=== PATIENT | male | born 2000 | race Hispanic/Latino ===

== ENCOUNTER 2022-03-29 04:59 | Emergency (ER) | payer OTHER ==
[~2022-03-29] VITALS: Ht 172.7 cm; Wt 63.5 kg
[2022-03-29] MEDS ORDERED: LEXAPRO (05:03)
[2022-03-29 05:27] LABS: BASOPHILS % (AUTO) 0.7 % (0.0-5.0); EOSINOPHILS % (AUTO) 0.5 % (0.0-8.0); HEMATOCRIT 42.6 % (42-54); LYMPHOCYTES % (AUTO) 24.5 % (21.0-51.0); MEAN CORPUSCULAR HEMOGLOBIN 30.4 pg (27.0-33.0); MEAN CORPUSCULAR HGB CONC 35.9 g/dL (32.0-36.0); MEAN CORPUSCULAR VOLUME 84.5 fL (79-99); MONOCYTES % (AUTO) 5.5 % (3.0-13.0); NEUTROPHILS % (AUTO) 68.6 % (40.0-77.0); PLATELET COUNT (AUTO) 199 K/uL (130-400); RED BLOOD CELL COUNT(AUTO) 5.04 MIL/uL (4.50-6.20); RED CELL DISTRIBUTION WIDTH 12.1 % (11.0-15.5)
[2022-03-29 05:29] LABS: APPEARANCE,URINE CLEAR (CLEAR); BILIRUBIN,URINE NEGATIVE (NEGATIVE); COLOR,URINE LIGHT-YELLOW (YELLOW); GLUCOSE, URINE (UA) NEGATIVE (NEGATIVE); KETONES,URINE 40 mg/dL (NEGATIVE); LEUKOCYTE ESTERASE ,URINE NEGATIVE Leu/uL (NEGATIVE); NITRATE,URINE NEGATIVE (NEGATIVE); OCCULT BLOOD,URINE NEGATIVE (NEGATIVE); PROTEIN,URINE NEGATIVE (NEGATIVE); UROBILINOGEN,URINE 0.2 mg/dL (0.2-1.0)
[2022-03-29 05:37] LABS: AMPHET/METH SCREEN,URINE NEGATIVE (NEGATIVE); BARBITURATE SCREEN, URINE NEGATIVE (NEGATIVE); BENZODIAZEPINES SCREEN,URINE NEGATIVE (NEGATIVE); CANNABINOID SCREEN,URINE NEGATIVE (NEGATIVE); COCAINE SCREEN,URINE NEGATIVE (NEGATIVE); OPIATE SCREEN,URINE NEGATIVE (NEGATIVE); PHENCYCLIDINE SCREEN,URINE NEGATIVE (NEGATIVE)
[2022-03-29 05:43] LABS: CREATININE 0.9 mg/dL (0.5-1.5); POTASSIUM 3.5 mmol/L (3.5-5.1)
[2022-03-29 05:50] LABS: ALBUMIN 4.8 g/dL (3.5-5.0); MAGNESIUM 1.9 mg/dL (1.80-2.40)
[2022-03-29 07:01] VITALS: BP 123/62
== END 2022-03-29 07:02 | disposition home or self-care (01) ==
LOC: EDH 04:59
DX: R07.89 Other chest pain (principal)
CPT/HCPCS: 36415; 71045; 80053; 80305; 81003; 83735; 84484; 85025; 93005

== ENCOUNTER 2022-04-26 07:10 | Emergency (ER) | payer OTHER ==
[~2022-04-26] VITALS: Ht 172.7 cm; Wt 68.0 kg
[~2022-04-26 07:10] MED LIST: LEXAPRO
[2022-04-26 07:15] VITALS: BP 142/77
[2022-04-26 07:44] LABS: APPEARANCE,URINE CLEAR (CLEAR); BILIRUBIN,URINE NEGATIVE (NEGATIVE); COLOR,URINE LIGHT-YELLOW (YELLOW); GLUCOSE, URINE (UA) NEGATIVE (NEGATIVE); KETONES,URINE NEGATIVE (NEGATIVE); LEUKOCYTE ESTERASE ,URINE NEGATIVE Leu/uL (NEGATIVE); MUCUS,URINE RARE LPF (None Seen); NITRATE,URINE NEGATIVE (NEGATIVE); OCCULT BLOOD,URINE NEGATIVE (NEGATIVE); PROTEIN,URINE NEGATIVE (NEGATIVE); RBC,URINE 0-1 /HPF (0-1); UROBILINOGEN,URINE 0.2 mg/dL (0.2-1.0); WBC,URINE 0-1 /HPF (0-1)
[2022-04-26 07:46] LABS: AMPHET/METH SCREEN,URINE NEGATIVE (NEGATIVE); BARBITURATE SCREEN, URINE NEGATIVE (NEGATIVE); BENZODIAZEPINES SCREEN,URINE NEGATIVE (NEGATIVE); CANNABINOID SCREEN,URINE NEGATIVE (NEGATIVE); COCAINE SCREEN,URINE NEGATIVE (NEGATIVE); OPIATE SCREEN,URINE NEGATIVE (NEGATIVE); PHENCYCLIDINE SCREEN,URINE NEGATIVE (NEGATIVE)
[2022-04-26 07:50] LABS: BASOPHILS % (AUTO) 0.6 % (0.0-5.0); EOSINOPHILS % (AUTO) 0.3 % (0.0-8.0); HEMATOCRIT 42.6 % (42-54); LYMPHOCYTES % (AUTO) 30.9 % (21.0-51.0); MEAN CORPUSCULAR HEMOGLOBIN 30.5 pg (27.0-33.0); MEAN CORPUSCULAR HGB CONC 35.7 g/dL (32.0-36.0); MEAN CORPUSCULAR VOLUME 85.4 fL (79-99); MONOCYTES % (AUTO) 4.9 % (3.0-13.0); PLATELET COUNT (AUTO) 205 K/uL (130-400); RED BLOOD CELL COUNT(AUTO) 4.99 MIL/uL (4.50-6.20); RED CELL DISTRIBUTION WIDTH 12.4 % (11.0-15.5); WHITE BLOOD COUNT (AUTO) 6.9 K/uL (4.8-10.8)
[2022-04-26] MEDS ORDERED: HYDROXYZINE 100MG/2ML VIAL IM STA (07:55)
[2022-04-26] MEDS ORDERED: HYDROXYZINE 25 MG TABLET PO ONE (08:00)
[2022-04-26 08:04] LABS: ALBUMIN 4.6 g/dL (3.5-5.0); CREATININE 0.8 mg/dL (0.5-1.5); POTASSIUM 3.2 mmol/L (3.5-5.1); TOTAL PROTEIN, SERUM 7.8 g/dL (6.0-8.3)
[2022-04-26] MEDS ORDERED: HYDROXYZINE 50MG VIAL 50 MG/ML VIAL IM SCH ×2 (08:30)
[2022-04-26] MEDS ORDERED: NAPR-1196 PO (09:00)
[2022-04-26] MEDS ORDERED: KETOROLAC 30MG VIAL (30MG/ML) IVP ONE (09:00)
== END 2022-04-26 09:09 | disposition home or self-care (01) ==
LOC: EDH 07:10
DX: R07.89 Other chest pain (principal); F41.9 Anxiety disorder, unspecified
CPT/HCPCS: 99285; 71045; 82550; 84484; 80053; 80305; 83690; 85025; 36415; 93005; 81001; J3410 ×2

== ENCOUNTER 2022-05-25 00:45 | Emergency (ER) | payer OTHER ==
[~2022-05-25] VITALS: Ht 172.7 cm; Wt 68.5 kg
[~2022-05-25 00:45] MED LIST changes: +NAPR-1196 PO
[2022-05-25 01:05] LABS: BASOPHILS % (AUTO) 0.5 % (0.0-5.0); EOSINOPHILS % (AUTO) 0.9 % (0.0-8.0); LYMPHOCYTES % (AUTO) 28.9 % (21.0-51.0); MEAN CORPUSCULAR HEMOGLOBIN 30.5 pg (27.0-33.0); MEAN CORPUSCULAR HGB CONC 35.2 g/dL (32.0-36.0); MEAN CORPUSCULAR VOLUME 86.6 fL (79-99); MONOCYTES % (AUTO) 4.8 % (3.0-13.0); NEUTROPHILS % (AUTO) 64.5 % (40.0-77.0); PLATELET COUNT (AUTO) 217 K/uL (130-400); RED BLOOD CELL COUNT(AUTO) 5.08 MIL/uL (4.50-6.20); RED CELL DISTRIBUTION WIDTH 12.3 % (11.0-15.5); WHITE BLOOD COUNT (AUTO) 5.7 K/uL (4.8-10.8)
[2022-05-25 01:17] LABS: CREATININE 0.9 mg/dL (0.5-1.5); POTASSIUM 3.6 mmol/L (3.5-5.1)
[2022-05-25 01:21] LABS: ALBUMIN 4.8 g/dL (3.5-5.0); MAGNESIUM 2.2 mg/dL (1.80-2.40)
[2022-05-25] MEDS ORDERED: HYD25 PO (01:21)
[2022-05-25 01:30] LABS: APPEARANCE,URINE CLEAR (CLEAR); BILIRUBIN,URINE NEGATIVE (NEGATIVE); COLOR,URINE LIGHT-YELLOW (YELLOW); GLUCOSE, URINE (UA) NEGATIVE (NEGATIVE); KETONES,URINE NEGATIVE (NEGATIVE); LEUKOCYTE ESTERASE ,URINE NEGATIVE Leu/uL (NEGATIVE); NITRATE,URINE NEGATIVE (NEGATIVE); OCCULT BLOOD,URINE NEGATIVE (NEGATIVE); PH,URINE 5.5 (5.0-8.0); PROTEIN,URINE NEGATIVE (NEGATIVE); UROBILINOGEN,URINE 0.2 mg/dL (0.2-1.0)
[2022-05-25] MEDS ORDERED: HYDROXYZINE 25 MG TABLET PO ONE (01:30)
[2022-05-25 01:38] LABS: AMPHET/METH SCREEN,URINE NEGATIVE (NEGATIVE); BARBITURATE SCREEN, URINE NEGATIVE (NEGATIVE); BENZODIAZEPINES SCREEN,URINE NEGATIVE (NEGATIVE); CANNABINOID SCREEN,URINE NEGATIVE (NEGATIVE); COCAINE SCREEN,URINE NEGATIVE (NEGATIVE); OPIATE SCREEN,URINE NEGATIVE (NEGATIVE); PHENCYCLIDINE SCREEN,URINE NEGATIVE (NEGATIVE)
[2022-05-25 02:19] VITALS: BP 112/60
== END 2022-05-25 02:28 | disposition home or self-care (01) ==
LOC: EDH 00:45
DX: R07.9 Chest pain, unspecified (principal); F41.9 Anxiety disorder, unspecified; E78.00 Pure hypercholesterolemia, unspecified; Z79.1 Long term (current) use of non-steroidal anti-inflammatories (NSAID)
CPT/HCPCS: 36415; 71045; 80053; 80305; 81003; 83735; 84484; 85025; 93005

== ENCOUNTER 2022-08-25 18:31 | Emergency (ER) | payer OTHER, SELFPAY ==
[~2022-08-25] VITALS: Ht 172.7 cm; Wt 69.4 kg
[~2022-08-25 18:31] MED LIST changes: +HYD25 PO
[2022-08-25] MEDS ORDERED: IBUP-2070 PO (21:10)
[2022-08-25 22:13] VITALS: BP 131/88
== END 2022-08-25 22:19 | disposition home or self-care (01) ==
LOC: EDH 18:31
DX: R68.84 Jaw pain (principal); F41.9 Anxiety disorder, unspecified; E78.00 Pure hypercholesterolemia, unspecified; Z79.899 Other long term (current) drug therapy
CPT/HCPCS: 70330

== ENCOUNTER 2022-09-17 04:59 | Emergency (ER) | payer OTHER ==
[~2022-09-17] VITALS: Ht 172.7 cm; Wt 69.4 kg
[~2022-09-17 04:59] MED LIST changes: +IBUP-2070 PO
[2022-09-17 05:03] VITALS: BP 136/98
[2022-09-17 06:12] LABS: BASOPHILS % (AUTO) 0.6 % (0.0-5.0); EOSINOPHILS % (AUTO) 0.3 % (0.0-8.0); HEMATOCRIT 43.5 % (42-54); LYMPHOCYTES % (AUTO) 20.7 % (21.0-51.0); MEAN CORPUSCULAR HEMOGLOBIN 30.6 pg (27.0-33.0); MEAN CORPUSCULAR HGB CONC 35.4 g/dL (32.0-36.0); MEAN CORPUSCULAR VOLUME 86.5 fL (79-99); MONOCYTES % (AUTO) 4.7 % (3.0-13.0); NEUTROPHILS % (AUTO) 73.4 % (40.0-77.0); PLATELET COUNT (AUTO) 207 K/uL (130-400); RED BLOOD CELL COUNT(AUTO) 5.03 MIL/uL (4.50-6.20); RED CELL DISTRIBUTION WIDTH 12.2 % (11.0-15.5); WHITE BLOOD COUNT (AUTO) 6.8 K/uL (4.8-10.8)
[2022-09-17 06:15] LABS: APPEARANCE,URINE CLEAR (CLEAR); BILIRUBIN,URINE NEGATIVE (NEGATIVE); COLOR,URINE COLORLESS (YELLOW); GLUCOSE, URINE (UA) NEGATIVE (NEGATIVE); KETONES,URINE NEGATIVE (NEGATIVE); LEUKOCYTE ESTERASE ,URINE NEGATIVE Leu/uL (NEGATIVE); NITRATE,URINE NEGATIVE (NEGATIVE); OCCULT BLOOD,URINE NEGATIVE (NEGATIVE); PH,URINE 6.5 (5.0-8.0); PROTEIN,URINE NEGATIVE (NEGATIVE); UROBILINOGEN,URINE 0.2 mg/dL (0.2-1.0)
[2022-09-17 06:23] LABS: AMPHET/METH SCREEN,URINE NEGATIVE (NEGATIVE); BARBITURATE SCREEN, URINE NEGATIVE (NEGATIVE); BENZODIAZEPINES SCREEN,URINE NEGATIVE (NEGATIVE); CANNABINOID SCREEN,URINE NEGATIVE (NEGATIVE); COCAINE SCREEN,URINE NEGATIVE (NEGATIVE); OPIATE SCREEN,URINE NEGATIVE (NEGATIVE); PHENCYCLIDINE SCREEN,URINE NEGATIVE (NEGATIVE)
[2022-09-17 06:24] LABS: INR 0.94 (0.85-1.15); PROTHROMBIN TIME 10.9 SEC (9.6-11.6)
[2022-09-17 06:30] LABS: ALBUMIN 4.9 g/dL (3.5-5.0); CREATININE 0.7 mg/dL (0.5-1.5); POTASSIUM 4.6 mmol/L (3.5-5.1); TOTAL PROTEIN, SERUM 8.2 g/dL (6.0-8.3)
[2022-09-17 06:38] LABS: B-TYPE NATRIURETIC PEPTIDE < 5 pg/mL (0-100)
[2022-09-17 07:54] LABS: ERYTHROCYTE SEDIMENTATION RATE 5 MM/HR (0-15)
== END 2022-09-17 07:04 | disposition home or self-care (01) ==
LOC: EDH 04:59
DX: R07.89 Other chest pain (principal); F41.9 Anxiety disorder, unspecified; M54.2 Cervicalgia; M54.9 Dorsalgia, unspecified; Z79.899 Other long term (current) drug therapy
CPT/HCPCS: 36415; 71045; 80053; 80305; 81003; 83880; 85025; 85610; 85651; 93005

== ENCOUNTER 2023-12-09 14:46 | Emergency (ER) | payer BC ==
[~2023-12-09] VITALS: Ht 172.7 cm; Wt 77.1 kg
[~2023-12-09 14:46] MED LIST changes: +HYDR-3421 PO; +PANT40TA54 PO
--- NOTE | 2023-12-09 15:11 | ERN ---
ED Note History of Present Illness Stated Complaint: BODY ACHES,SORE THROAT,MUCUS Chief Complaint: Sore Throat Time Seen by MD: 14:56 Dictation: PATIENT IS A 23-YEAR-OLD MALE COMING IN TODAY WITH FLU-LIKE SYMPTOMS TO INCLUDE CLEAR RUNNY NOSE, MILD SORE THROAT WITH PAINFUL SWALLOWING, BODY ACHES FOR TWO DAYS. STATES HE IS NOT SURE IF HE HAS HAD A FEVER HOWEVER HE HAS HAD CHILLS. HE DENIES NAUSEA VOMITING OR DIARRHEA NO LOSS OF TASTE OR SMELL. HE HAS TAKEN IBUPROFEN PRIOR TO ARRIVAL AND DID NOT GO SEE HIS PRIMARY CARE DOCTOR. NO RASH NO COUGH Allergies: Coded Allergies: No Known Allergies (Unverified Allergy, Unknown, 03/29/22) Home Meds Active Scripts Pantoprazole Sodium (Pantoprazole Sodium) 40 Mg Tablet.dr, 40 MG PO DAILY for 14 Days, #28 TAB Prov:ELIZABETH CARVER 05/30/23 Hydroxyzine HCl (Hydroxyzine HCl) 25 Mg Tablet, 25 MG PO BID for 5 Days, #10 TAB Prov:ELIZABETH CARVER 05/30/23 Ibuprofen (Ibuprofen) 600 Mg Tablet, 600 MG PO Q6H PRN for PAIN, #30 TAB Prov:CHRISTOPHER GRIMM 08/25/22 Hydroxyzine HCl (Atarax) 25 Mg Tab, 25 MG PO TID for ANXIETY, #30 TAB Prov:SLAVA MCCRAY MD 05/25/22 Naproxen (Naproxen) 250 Mg Tablet, 250 MG PO BID PRN for PAIN LEVEL 1 TO 5 for 10 Days, #20 TAB Prov:RICHARD CH MD 04/26/22 Reported Medications [Lexapro] No Conflict Check 03/29/22 Past Medical History Past Medical History: No Pertinent History Additional Past Medical Hx: DENIES MEDICAL HX Surgical History: None Surgical History Other: DENIES SX HX PSYCH History: no pertinent psych hx Family History: Negative Social History: Negative, Lives with family, Other RN Note Reviewed/Agreed w/PFSH: Yes Review of System Dictation CONSTITUTIONAL: NEGATIVE EXCEPT FOR HPI CHILLS HEAD/FACE: NEGATIVE EXCEPT FOR HPI EENT: NEGATIVE EXCEPT FOR HPI CLEAR RHINITIS WITH SORE THROAT RESPIRATORY: NEGATIVE EXCEPT FOR HPI GASTROINTESTINAL/ABDOMINAL: NEGATIVE EXCEPT FOR HPI GENITOURINARY: NEGATIVE EXCEPT FOR HPI MUSCULOSKELETAL: NEGATIVE EXCEPT FOR HPI INTEGUMENTARY: NEGATIVE EXCEPT FOR HPI NEUROLOGICAL/PSYCH: NEGATIVE EXCEPT FOR HPI HEMATOLOGIC/LYMPHATIC: NEGATIVE EXCEPT FOR HPI ALL SYSTEMS NEGATIVE, EXCEPT NOTED ABOVE. 13 POINT REVIEW OF SYSTEMS ASSESSED AND ALL NEGATIVE EXCEPT FOR ABOVE. Initial Vital Sign VS Vital Signs Date Time Temp Pulse Resp B/P (MAP) Pulse Ox O2 Delivery O2 Flow Rate FiO2 12/09/23 14:54 101.1 110 18 135/68 97 Room Air 0 12/09/23 15:19 21 Physical Exam Dictation VITAL SIGNS REVIEWED GENERAL APPEARANCE: ALERT, ORIENTED X 3, MO ACUTE DISTRESS, WELL DEVELOPED, NOURISHED. HEAD AND FACE: NON-TRAUMATIC. EYES: PERRL, PINK CONJUNCTIVAS, EYELID NO TRAUMA, ANTERIOR CHAMBER WITH ARCUS SENILIS. EARS: PINNAS INTACT AND NO SIGNS OF TRAUMA OR ERYTHEMA EAR CANALS CLEAR AND NO DISCHARGE TM NO ERYTHEMA NOSE: CLEAR DISCHARGE, NO BLEEDING. OROPHARYNX: MOUTH NORMAL, TONGUE PINK, PHARYNX CLEAR, MILD PHARYNGEAL ERYTHEMA, TONSILS NO EXUDATES, NO ABSCESSES NOTED, MUCOUS MEMBRANE MOIST POSITIVE SOME TONSILLAR LYMPHADENOPATHY, UVULA IS MIDLINE VOICE IS CLEAR NECK: SUPPLE, NON-TENDER, NO THYROMEGALY, NO MASSES, NO JVD, NO BRUITS BREAST:DEFERRED CHEST:NO TENDERNESS, NO CREPITUS, NO PARADOXICAL MOVEMENT, NO RETRACTIONS LUNGS:CLEAR, WELL-VENTILATED, SYMMETRIC, NO RALES, NO WHEEZING, NO RHONCHI, NO STRIDOR, GOOD BREATH SOUNDS BILATERALLY HEART: REGULAR RATE, REGULAR RHYTHM, NO MURMUR, NO GALLOPS VASCULAR: NO PERIPHERAL EDEMA, ABDOMEN: SOFT, POSITIVE BOWEL SOUNDS, NONDISTENDED, NO GUARDING, NONTENDER, NO REBOUND, NO MASSES NO HEPATOMEGALY, NO SPLENOMEGALY, NO JEAN'S SIGN, NO HERNIAS. RECTAL: DEFERRED GENITAL: DEFERRED NEUROLOGICAL: NORMAL SPEECH, MOTOR FUNCTION INTACT, SENSORY FUNCTION INTACT MUSCULOSKELETAL: NECK NONTENDER, FULL RANGE OF MOTION, BACK NONTENDER, FULL RANGE OF MOTION, EXTREMITIES: NONTENDER, FULL RANGE OF MOTION SKIN: COLOR PINK, DRY, NO TURGOR, NO RASH, NO LACERATIONS, NO ABRASIONS, NO CONTUSIONS. LYMPHATIC: DEFERRED Results (Laboratory/Radiology) Laboratory/Radiology Laboratory Tests Test 12/09/23 15:00 Influenza Type A Antigen Negative For Type A Influenza Type B Antigen Negative For Type B SARS-CoV-2, RNA, NAAT NEGATIVE SARS CoV-2 Group A Streptococcus Rapid negative (NEGATIVE) Labs Reviewed?: Yes ED Course ED Course Orders Procedure Category Date Status Time Covid Rna Naat LAB 12/09/23 Complete 14:57 Influenza Type A & B, LAB 12/09/23 Complete Rapid 14:57 Rapid (Group A Strep) LAB 12/09/23 Complete 14:57 Vital Signs Date Time Temp Pulse Resp B/P (MAP) Pulse Ox O2 Delivery O2 Flow Rate FiO2 12/09/23 15:19 101.3 114 20 115/62 98 Room Air* 0 21 12/09/23 14:54 101.1 110 18 135/68 97 Room Air 0 1 15 50, PATIENT WILL BE TREATED FOR ACUTE PHARYNGITIS UNSPECIFIED GIVEN AUGMENTIN AND TOLD TO SEE HIS PRIMARY CARE DOCTOR MONDAY TO Medical Decision Making MDM MEDICAL DECISION-MAKING BASED ON SWABS FOR FLU COVID AND STREP ALL NEGATIVE PATIENT WILL BE TREATED FOR ACUTE PHARYNGITIS UNSPECIFIED DISCHARGED TO SEE HIS PRIMARY CARE DOCTOR DX & DISP Disposition: Discharge Departure Impression: Primary Impression: Acute pharyngitis, unspecified Additional Impression: Fever Condition: Stable Scripts Amoxicillin/Potassium Clav (Amox Tr-K Clv 875-125 mg Tab) 875 Mg-125 Mg Tablet 1 EACH PO BID for 7 Days, #14 TAB 0 Refills Prov: PARUL ADDISON SENIOR BUSINESS DEVELOPMENT ANALYST 12/09/23 Additional Instructions: FOLLOW-UP WITH PRIMARY CARE PROVIDER IN 1 TO 2 DAYS. TAKE MEDICATIONS DIRECTED HERE IN THE EMERGENCY ROOM. OKAY TO CONTINUE HOME MEDICATIONS UNLESS OTHERWISE DISCUSSED DURING YOUR VISIT IN THE EMERGENCY ROOM TODAY. RETURN TO YOUR NEAREST EMERGENCY ROOM IF SYMPTOMS WORSEN OR IF THERE IS NO IMPROVEMENT. CALL 911 IF YOU NEED IMMEDIATE ASSISTANCE. TAKE TYLENOL OR MOTRIN [id number] NEEDED AND IF NO CONTRAINDICATIONS ARE PRESENT. INCREASE ORAL HYDRATION. A WOUND CULTURE OR URINE CULTURE WAS ORDERED HERE IN THE EMERGENCY ROOM DEPARTMENT PLEASE FOLLOW-UP WITH PRIMARY CARE PROVIDER AND ADVISE THEM TO GET REPEAT PORTS FROM OUR FACILITY. IF YOU HAD ANY LUIS ANTONIO WRAP/SPLINTS THAT WERE APPLIED HERE, PLEASE DO NOT REMOVE THEM UNTIL YOU SEE YOUR PRIMARY CARE OR SPECIALTY. TAKE ANTIBIOTICS DIRECTED UNTIL GONE., TAKE [id number] TYLENOL OR MO JORDYN FOR PAIN. INCREASE YOUR FLUID INTAKE AND SEE YOUR PRIMARY CARE DOCTOR FOR MONDAY ON FOLLOW UP Referrals: ALBA EVANS (PCP) Time of Disposition: 15:53 I have reviewed the case, and I agree with, Diagnosis and Plan PARUL ADDISON NP Dec 09, 2023 15:11
[2023-12-09 15:31] LABS: RAPID GROUP A STREP negative (NEGATIVE)
[2023-12-09 15:32] LABS: SARS-CoV-2, RNA, NAAT NEGATIVE SARS CoV-2 (NEGATIVE)
[2023-12-09 15:40] LABS: INFLUENZA TYPE A Negative For Type A (NEGATIVE); INFLUENZA TYPE B Negative For Type B (NEGATIVE)
[2023-12-09] MEDS ORDERED: AMOX1TAB16 PO (15:53)
[2023-12-09 15:55] VITALS: BP 117/60; PULSE 98; RESP 18; TEMP 100.2; O2SAT 98
== END 2023-12-09 15:58 | disposition home or self-care (01) ==
LOC: EDH 14:46
DX: J02.9 Acute pharyngitis, unspecified (principal); Z20.822 Contact with and (suspected) exposure to COVID-19; Z79.899 Other long term (current) drug therapy
CPT/HCPCS: 87635; 87804; 87880

== ENCOUNTER 2024-07-03 03:07 | Emergency (ER) | payer BC ==
[~2024-07-03] VITALS: Ht 172.7 cm; Wt 80.7 kg
[~2024-07-03 03:07] MED LIST changes: +AMOX1TAB16 PO
--- NOTE | 2024-07-03 03:29 | NUR ---
PT CARE ASSUMED AT THIS TIME
[2024-07-03 03:34] LABS: RAPID GROUP A STREP negative (NEGATIVE)
[2024-07-03 03:40] VITALS: TEMP 100
[2024-07-03 03:40] LABS: SARS-CoV-2, RNA, NAAT NEGATIVE SARS CoV-2 (NEGATIVE)
[2024-07-03] MEDS: ibuPROFEN 600 MG TABLET PO ONE (03:40)
[2024-07-03] MEDS: acetaMINOPHEN 500 MG TABLET PO ONE (03:40)
[2024-07-03 03:44] LABS: INFLUENZA TYPE A Negative For Type A (NEGATIVE)
--- NOTE | 2024-07-03 03:47 | ERN ---
ED Note History of Present Illness Stated Complaint: C/O SORE THROAT,BODYACHES,COUGH,PHLEGM,FEVER Chief Complaint: Sore Throat Time Seen by MD: 03:21 Dictation: 24-year-old male who comes to the ED because of cough congestion runny aches body aches fevers. Intermittent in the last couple of days. Denies any previous medical problems denies asthma has sec medications denies any falls trips traumas denies any chest pain Allergies: Coded Allergies: No Known Allergies (Unverified Allergy, Unknown, 03/29/22) Home Meds Active Scripts Amoxicillin/Potassium Clav (Amox Tr-K Clv 875-125 mg Tab) 875 Mg-125 Mg Tablet, 1 EACH PO BID for 7 Days, #14 TAB 0 Refills Prov:PARUL ADDISON NP 12/09/23 Pantoprazole Sodium (Pantoprazole Sodium) 40 Mg Tablet.dr, 40 MG PO DAILY for 14 Days, #28 TAB Prov:ELIZABETH CARVER 05/30/23 Hydroxyzine HCl (Hydroxyzine HCl) 25 Mg Tablet, 25 MG PO BID for 5 Days, #10 TAB Prov:ELIZABETH CARVER 05/30/23 Ibuprofen (Ibuprofen) 600 Mg Tablet, 600 MG PO Q6H PRN for PAIN, #30 TAB Prov:CHRISTOPHER GRIMM 08/25/22 Hydroxyzine HCl (Atarax) 25 Mg Tab, 25 MG PO TID for ANXIETY, #30 TAB Prov:SLAVA MCCRAY MD 05/25/22 Naproxen (Naproxen) 250 Mg Tablet, 250 MG PO BID PRN for PAIN LEVEL 1 TO 5 for 10 Days, #20 TAB Prov:RICAHRD CH MD 04/26/22 Reported Medications [Lexapro] No Conflict Check 03/29/22 Past Medical History Past Medical History: No Pertinent History Additional Past Medical Hx: DENIES MEDICAL HX Surgical History: None Surgical History Other: DENIES SX HX Family History: Negative Social History: Negative, Lives with family, Other Review of System Dictation Has cough congestion runny nose denies any chest pain shortness of breath falls trips traumas. Does have some body aches. Initial Vital Sign VS Vital Signs Date Time Temp Pulse Resp B/P (MAP) Pulse Ox O2 Delivery O2 Flow Rate FiO2 4/16/25 03:10 102.2 109 28 133/81 97 Room Air 07/03/24 03:33 0 21 Physical Exam Dictation General: awake, alert, NAD Head/Face: Normocephalic, atraumatic Eyes: PERRL, EOMI, vision at baseline ENT: oral cavity clear, TMs clear, no signs of infection Neck: Trachea midline, supple, no nuchal rigidity Cardiovascular: RRR, normal S1/S2, No MRGs, no JVD Respiratory: CTAB, no respiratory distress, No rales or wheezes Abdomen: Soft, non-tender, non-distended, normal bowel sounds, no guarding or rebound. Skin: Warm, dry, normal turgor, no rash MS/Extremity: Pulses equal, no cyanosis, neurovascular intact, FROM Neuro: COAx4, GCS 15, strength 5/5, CN 2-12 intact, normal cerebellar exam, normal gait, Psych: Normal behavior, mood, and affect normal On oropharyngeal examination. No signs of uvular deviation. Tonsillar or pharyngeal abscess. He is speak in full complete sentences. On triage. He was tachy at 109.. In the room. His heart rate is improved to 98-100. Without medications No wheezing rhonchi or rale Results (Laboratory/Radiology) Laboratory/Radiology Laboratory Tests Test 07/03/24 03:16 Influenza Type A Antigen Negative For Type A Influenza Type B Antigen Positive For Type B SARS-CoV-2, RNA, NAAT NEGATIVE SARS CoV-2 Group A Streptococcus Rapid negative (NEGATIVE) ED Course ED Course Orders Procedure Category Date Status Time Covid Rna Naat LAB 07/03/24 Complete 03:14 Influenza Type A & B, LAB 07/03/24 Complete Rapid 03:14 Rapid (Group A Strep) LAB 07/03/24 Complete 03:14 Acetaminophen 500mg PHA 07/03/24 Complete Tab (Tylenol 500mg T 04:00 Ibuprofen 600 Mg PHA 07/03/24 Complete Tablet (Motrin) 04:00 Current Medications Medications (Trade) Dose Ordered Sig/Jensen Route PRN Reason Start Time Stop Time Status Last Admin Dose Admin Acetaminophen (TYLenol 500MG TAB) 500 mg ONCE ONCE PO 07/03/24 04:00 07/03/24 04:01 DC 07/03/24 03:40 Ibuprofen (moTRIN) 600 mg ONCE ONCE PO 07/03/24 04:00 07/03/24 04:01 DC 07/03/24 03:40 Vital Signs Date Time Temp Pulse Resp B/P (MAP) Pulse Ox O2 Delivery O2 Flow Rate FiO2 07/03/24 03:40 100.0 07/03/24 03:40 100.0 07/03/24 03:33 100.0 99 16 123/68 98 Room Air* 0 21 07/03/24 03:10 102.2 109 28 133/81 97 Room Air Medical Decision Making MDM Likely viral syndrome influenza could be strep could be COVID. So we will do some swabs and give some medications to feel better he was in agreement with this. Does not does not have any previous medical problems or any issues. It was only been last couple of days unlikely be a pneumonia. No clinical evidence of ACS MDM: Differential diagnosis: Rationale: Tests considered and ordered secondary to shared decision making include: Previous outside records reviewed: Old ER visits. Risk of complication and/or morbidity or mortality of patient management: None Medications-Per medication reconciliation Need for hospitalization: Patient does not meet criteria for hospitalization. Need for emergency major/minor surgery: No There are no social concerns with this patient. Prescription drug management Prescriptions will include symptomatic care Patient's prior external medical records from other ER visits were reviewed by garrett soler as indicated. Prior testing and results from previous visits were reviewed. Prior tests were taken into account with medical decision making and resource utilization, independent historian/historians were used to obtain complete medical history. I independently interpreted the test that were performed, results were reviewed by me and considered findings on radiology if ordered. Medical management and examination interpretation discussions were had by me with other qualified healthcare professionals as indicated for the patient's care. DX & DISP Disposition: Discharge Departure Impression: Primary Impression: Bronchitis Additional Impressions: Viral syndrome, Influenza Condition: Stable Scripts Ondansetron (Ondansetron Odt) 4 Mg Tab.rapdis 4 MG PO Q6HPRN PRN for NAUSEA for 5 Days, #20 TAB Prov: SHEFALI CURIEL MD 07/03/24 Oseltamivir Phosphate (Tamiflu) 75 Mg Cap 75 MG PO BID for 5 Days, #10 CAP Prov: SHEFALI CURIEL MD 07/03/24 Albuterol Sulfate (Ventolin Hfa/Proventil Hfa/Proair Hfa) 90 Mcg Puff 1 PUFF IH Q4H PRN for SHORTNESS OF BREATH for 5 Days, #1 INH 0 Refills PHARMACY TO DISPENSE 1 INHALER FOR USE Prov: SHEFALI CURIEL MD 07/03/24 Referrals: KAILYN MENDEZ (PCP) SHEFALI CURIEL MD Jul 03, 2024 03:47
[2024-07-03 04:12] LABS: INFLUENZA TYPE B Positive For Type B (NEGATIVE)
[2024-07-03] MEDS ORDERED: ALBUHFA IH (04:17)
[2024-07-03] MEDS ORDERED: OSEL75 PO (04:17)
[2024-07-03] MEDS ORDERED: ONDA-243 PO (04:17)
[2024-07-03 04:19] VITALS: BP 119/68; PULSE 97; RESP 17; TEMP 99.9; O2SAT 98
== END 2024-07-03 04:31 | disposition home or self-care (01) ==
LOC: EDH 03:07
DX: J40 Bronchitis, not specified as acute or chronic (principal); B34.9 Viral infection, unspecified; J11.1 Influenza due to unidentified influenza virus with other respiratory manifestations; Z79.899 Other long term (current) drug therapy; Z20.822 Contact with and (suspected) exposure to COVID-19
CPT/HCPCS: 87635; 87804; 87880; 99283